=== PATIENT | male | born 1955 | race Caucasian/White ===

== ENCOUNTER 2018-02-02 09:02 | Emergency (ER) | payer MEDICARE ==
--- NOTE | 2018-02-02 09:44 | UC ---
Lower Extremity/Ankle HPI - HPI Summary HPI Summary: Patient is 62 year old , with past medical history significant for HTN, DM, Asthma mentally challenged who present today with left big toe pain x 2 days . He is here with his sister who is helping with evaluation. He lives with his brother who is also mentally challenged. He does report left big toe pain but visually his left foot is significantly swollen and he says its hurts as well. No trauma . He sees his podiatry and has next appointment in february. No swelling of the ankle . Denies any fever, chills, cough chest pain or shortness of breath . No diaphoresis. Denies any abdominal pain , nausea or vomiting , diarrhea or constipation. He has not tried over the counter medication without much relief. - History of Current Complaint Stated Complaint: INGROWN TOE NAIL Time Seen by Provider: 02/02/18 09:38 Hx Obtained From: Patient, Family/Kinesiologist - sister accompanying him Onset/Duration: Sudden Onset - Allergies/Home Medications Allergies/Adverse Reactions: Allergies Allergy/AdvReac Type Severity Reaction Status Date / Time No Known Allergies Allergy Verified 02/02/18 09:51 Home Medications: Home Medications Acetaminophen TAB* [Tylenol TAB*] 650 mg PO DAILY PRN 02/02/18 [History Confirmed 02/02/18] Atorvastatin* [Lipitor*] 20 mg PO QPM 02/02/18 [History Confirmed 02/02/18] Lisinopril [Prinivil] 20 mg PO QPM 02/02/18 [History Confirmed 02/02/18] PMH/Surg Hx/FS Hx/Imm Hx Previously Healthy: Yes Endocrine History: Diabetes Other Endocrine History: Negative Cardiovascular History: Hypertension Other Cardiovascular History: Negative Respiratory History: Asthma Other Respiratory History: Negative Other GI/ History: Negative Neurological History: Other - Mentally challenged. Other Neurological History: Negative Other Psychological History: Negative Other Cancer History: Negative Review of Systems Constitutional: Negative Skin: Negative Eyes: Negative ENT: Negative Respiratory: Negative Cardiovascular: Negative Gastrointestinal: Negative Genitourinary: Negative Motor: Negative Musculoskeletal: Arthralgia, Decreased ROM, Edema - left foot and big toe, Myalgia Neurological: Negative Psychological: Negative Is Patient Immunocompromised?: No All Other Systems Reviewed And Are Negative: Yes Physical Exam - Summary Physical Exam Summary: Physical Exam: Gait: antalgic Const: Appears well. pain distress present. Alert and oriented x 3. Head/Face: Atraumatic, normocephalic on inspection. Eyes: Conjunctivae clear. No discharge noted ENT: Hearing normal Respiratory: Respirations are unlabored. Lungs clear to auscultation bilaterally, no wheezing , rhonchi or rales noted . CVS: Regular rate and Rhythm, S1S2 normal , no murmurs identified. Extremities: Peripheral circulation is grossly normal. Pulses 2+ Abdomen : Soft non tender , nondistended , Bowel sounds present . No guarding , rebound tenderness or rigidity noted. Skin: No lesions or rash located on the upper extremities or on the lower extremities. Neuro: motor and sensory intact. Mood is normal. Affect is normal. Left foot: significant swelling on dorsum of foot . NO bruising noted. Moderate to severe tenderness of the mid foot and the metatarsals Left big toe: nail appears to have been trimmed and has not ingrown yet . It's swollen , tender to touch. No drainage or fluctuation or signs of pus noted. Triage Information Reviewed: Yes Vital Signs Reviewed: Yes Lower Extremity Course/Dx - Course Course Of Treatment: During the visit today, on further asking and upon evaluation ,it appears that whole foot is swollen and tender and hurts him to bear weight. Possibility of osteomyelitis cannot be ruled out . Given no h/o of trauma, fracture does not seem to be the cause but history is not reliable. Plan to send him to ER to get a CT scan to r/o osteomyelitis. We discussed the findings and further plan. Patient and his sister expressed understanding . - Differential Dx/Diagnosis Provider Diagnoses: Arthritis. Osteomyelitis Discharge - Sign-Out/Discharge Documenting (check all that apply): Patient Departure All imaging exams completed and their final reports reviewed: No Studies - Discharge Plan Condition: Stable Disposition: HOME-RECOMMEND TO ED Patient Education Materials: Osteomyelitis (ED), Swollen Joint (ED) Referrals: Mamadou Noriega MD [Primary Care Provider] - 2 Days Additional Instructions: We discussed the need to go to ER. It's my official recoomendation that he be seen in ER for advanced imaging . Her sister will drive him to ER. I have called report to Dr. Fountain at [facility]. Follow up with your primary care doctor in 2 days. Return to Urgent care / ER if symptoms get worse. - Billing Disposition and Condition Condition: STABLE Disposition: Home-Recommend to ED Images Feet (Multiple View): 1 - dorsum of foot
[2018-02-02 09:51] VITALS: BP 124/64
== END 2018-02-02 10:30 | disposition home health service (06) ==
LOC: UCCORT 09:02
DX: M19.072 Primary osteoarthritis, left ankle and foot (principal); M86.9 Osteomyelitis, unspecified; I10 Essential (primary) hypertension; E11.9 Type 2 diabetes mellitus without complications; J45.909 Unspecified asthma, uncomplicated; F79 Unspecified intellectual disabilities; Z79.899 Other long term (current) drug therapy
CPT/HCPCS: 99202; G0463

== ENCOUNTER 2018-02-10 08:05 | Emergency (ER) | payer MEDICARE, MEDICAID ==
--- OUTSIDE RECORDS SUMMARY | 2018-02-10 08:16 | XMS REPORT ---
:1955 External Reference #:[id number] Author Organization [facility] Address [address] [place] [address], [address] [place] [address] Phone [phone] Care Team Providers Name Role Phone Mamadou Noriega M.D. Care Team Information Regional Geodetic Advisor Unavailable Payers Type Date Identification Numbers Payment Provider Subscriber Medicare Primary Effective: Policy Number: Medicare Part B Delfin Sam 2018 [id number] PayID: [id number] [facility] [address] [place] [address] Medicare Primary Expires: 2018 Policy Number: Medicare Part B Delfin Sam [id number] PayID: [id number] [facility] [address] [place] [address] Medigap Part B Policy Number: [id number] [facility] Medicaid\\Medicare Delfin Sam Group Name: 2 1 [address] PayID: [id number] [place] [address] Workers Onset: 2009 Policy [place] [employer] [place] Compensation Number: Co CLAIM# [id number] PayID: [id number] [facility] [address] Problems Date Description Provider Status Onset: 09/25/2010 Benign essential hypertension Mamadou Noriega M.D. Active Onset: 09/25/2010 Hyperlipidemia Mamadou Noriega M.D. Active Onset: 09/25/2010 Anxiety state Mamadou Noriega M.D. Active Onset: 02/05/2018 Cellulitis of left lower limb SUZY Rdz Active Onset: 03/24/2015 Essential hypertension Mamadou Noriega M.D. Active Family History Date Family Member(s) Problem(s) Comments Father due to Liver Cancer () Mother due to Kidney Disease () Mother Coronary Artery Disease (CAD) First Brother due to Stroke () First Sister None Second Sister spina bifida Social History Type Date Description Comments Lives With brothers, nephew Occupation [employer] Cigarette Use Never Smoked Cigarettes ETOH Use Denies alcohol use Recreational Drug Use Denies Drug Use Smoking Patient has never smoked Daily Caffeine Does Not Consume Caffeine Personal Habits Text Exercise - 2 days a week Allergies, Adverse Reactions, Alerts Date Description Reaction Status Severity Comments 02/22/2009 NKDA active Medications Medication Date Status Form Strength Qnty SIG Indications Ordering Provider Ramipril 06/04 Active Capsules 5mg 90cap take one s capsule by Noriega, mouth every M.D. day Simvastatin 05/06 Active Tablets 20mg 30tab Take One Mamadou s Tablet By Noriega, Mouth Every M.D. Day Amoxicillin/Cla Active Tablets 875-125mg 1 by mouth Unknown vulanate /0000 twice a day Potassium Tobradex 02/02 Hx Suspension 0.3-0.1% 10ml 2 drops 372.39 both eyes [facility], - four times RN, LOAN REVIEW OFFICER 06/06 a day x days Emla 02/02 Hx Cream 2.5-2.5% 25gm [facility], LOAN REVIEW OFFICER 06/06 procedure Acetaminophen 05/06 Hx Tablets 325mg 100ta 2 tabs po q bs 4h-6h prn Yady Noriega M.D. 02/16 Bisacodyl 05/06 Hx Suppository 10mg prn Mamadou Laxative Yady Noriega M.D. 08/11 Lasix 05/06 Hx Tablets 20mg 30tab 1 po qd prn Traci Damon s Le edema Osika-Micky - mary, 08/11 R.N., /2013 F.N.P. Ramipril 05/06 Hx Capsules 10mg 30cap 1 po qd Mamadou s Yady Noriega M.D. 06/04 Soap Suds Enema 05/06 Hx OTC Mamadou /2012 Yady Noriega M.D. 08/11 Sorbitol 05/06 Hx OTC prn bowel regularity Yady Noriega M.D. 08/11 Paroxetine HCL 11/17 Hx Tablets 20mg 90tab Take One s Tablet By Hari, - Mouth Once M.D. 05/06 Azithromycin 03/10 Hx Tablets 250mg 6tabs 2 tabs po 466.0 Mamadou on day 1, Hari, - then 1 po M.D. 03/28 qday days 2-5 Aspir-81 11/[address] 81mg 1bott 1 po qd brianda Noriega - M.D. 05/06 Paxil Hx Tablets 20mg 90tab 1 po qd Mamadou / s Hari - M.D. 11/17 Diovan HCT Hx Tablets 160/12.5 90tab 1 po qd Unknown /0000 s - 05/25 Zocor Hx Tablets 20mg 90tab Take One Mamadou / s Tablet By Hari, - Mouth Every M.D. Altace Hx Capsules 10mg 180ca Take 2 Mamadou / ps Capsules By Hari, - Mouth Every M.D. Iron Hx Tablets 325(65Fe) OTC 1 po qd Unknown /0000 mg - 10/26 Flomax Hx Capsules 0.4mg 1 by mouth Unknown /0000 every day - 06/06 Medications Administered in Office Medication Date Status Form Strength Qnty SIG Indications Ordering Provider Admin Of Administered Injection Mamadou Pneumococcal 011 Hari, Vaccine Margot PPD Tuberculin Administered Injection Mamadou 5mL, ND 010 Hari, [id number] M.Sharon Immunizations CPT Code Status Date Vaccine Lot # [id number] Given 05/15/2017 Afluria, 0.5mL Flu Vaccine Q2037 Given 06/06/2016 Fluvirin 0.5 ML,[facility] 53606-377-06 [id number] Q2037 Given 03/24/2015 Fluvirin 0.5 ML,[facility] [id number] [id number] Given 10/07/2014 Prevnar 13, [facility] [id number]. 0.5 ML Q2037 Given 04/08/2014 Fluvirin 0.5 ML,[facility] 89138-887-13 [id number] Q2037 Given 04/02/2012 Fluvirin 0.5 ML,[facility] [id number] Q2036 Given 03/30/2011 Medicare Flu Vaccine Split Virus [id number] Given 03/30/2011 Pneumococcal Vaccine, [facility] [id number], 0.5 ML [id number] 30679 Given 03/30/2011 Flu Vaccine Split Virus(2010) [id number] 91780 Given 03/28/2010 Flu Vaccine Split Virus(2010) [id number] 78249 Given 02/22/2009 Flu Vaccine Split Virus(2010) [id number] Vital Signs Date Vital Result Comment 02/05/2018 Weight 174.00 lb Height 62 inches 5'2" BP Systolic 124 mmHg BP Diastolic 72 mmHg Heart Rate 74 /min Respiratory Rate 18 /min BMI (Body Mass Index) 31.8 kg/m2 08/06/2017 Weight 181.00 lb Height 62 inches 5'2" BP Systolic 118 mmHg BP Diastolic 70 mmHg Heart Rate 62 /min Respiratory Rate 18 /min BMI (Body Mass Index) 33.1 kg/m2 02/06/2017 Weight 185.00 lb Height 62 inches 5'2" BP Systolic 112 mmHg BP Diastolic 70 mmHg Body Temperature 60.0 F Respiratory Rate 18 /min BMI (Body Mass Index) 33.8 kg/m2 06/06/2016 Weight 183.00 lb Height 62 inches 5'2" BP Systolic 104 mmHg BP Diastolic 72 mmHg Heart Rate 84 /min BMI (Body Mass Index) 33.5 kg/m2 10/20/2015 Weight 179.00 lb Height 62 inches 5'2" BP Systolic 125 mmHg BP Diastolic 70 mmHg Heart Rate 68 /min both: 20/100 O2 % BldC Oximetry 98 % left and right: 20/100 BMI (Body Mass Index) 32.7 kg/m2 03/24/2015 Weight 179.00 lb Height 62 inches 5'2" BP Systolic 128 mmHg BP Diastolic 80 mmHg Heart Rate 70 /min BMI (Body Mass Index) 32.7 kg/m2 02/02/2015 Weight 177.50 lb Height 62 inches 5'2" BP Systolic 134 mmHg BP Diastolic 90 mmHg Body Temperature 98.0 F Heart Rate 70 /min O2 % BldC Oximetry 91 % Respiratory Rate 16 /min BMI (Body Mass Index) 32.5 kg/m2 01/28/2015 Weight 180.00 lb Height 62 inches 5'2" BP Systolic 136 mmHg BP Diastolic 80 mmHg Heart Rate 74 /min BMI (Body Mass Index) 32.9 kg/m2 12/22/2014 Weight 181.00 lb Height 62 inches 5'2" BP Systolic 122 mmHg BP Diastolic 68 mmHg Heart Rate 60 /min O2 % BldC Oximetry 98 % Respiratory Rate 16 /min BMI (Body Mass Index) 33.1 kg/m2 10/07/2014 Weight 177.00 lb Height 62 inches 5'2" BP Systolic 128 mmHg BP Diastolic 74 mmHg Heart Rate 70 /min BMI (Body Mass Index) 32.4 kg/m2 05/17/2014 Weight 174.00 lb Height 62 inches 5'2" BP Systolic 142 mmHg BP Diastolic 80 mmHg BP Systolic Recheck 124 mmHg BP Diastolic Recheck 70 mmHg Heart Rate 72 /min BMI (Body Mass Index) 31.8 kg/m2 04/08/2014 Weight 171.00 lb Height 62 inches 5'2" BP Systolic 122 mmHg BP Diastolic 72 mmHg Heart Rate 68 /min BMI (Body Mass Index) 31.3 kg/m2 02/16/2014 Weight 170.50 lb Height 62 inches 5'2" BP Systolic 110 mmHg BP Diastolic 70 mmHg Heart Rate 64 /min BMI (Body Mass Index) 31.2 kg/m2 10/07/2013 Weight 164.00 lb Height 62 inches 5'2" BP Systolic 132 mmHg BP Diastolic 80 mmHg Heart Rate 76 /min BMI (Body Mass Index) 30.0 kg/m2 09/02/2013 Weight 157.00 lb Height 62 inches 5'2" BP Systolic 128 mmHg BP Diastolic 72 mmHg Heart Rate 72 /min BMI (Body Mass Index) 28.7 kg/m2 08/11/2013 Weight 158.00 lb Height 62 inches 5'2" BP Systolic 112 mmHg BP Diastolic 68 mmHg Heart Rate 72 /min BMI (Body Mass Index) 28.9 kg/m2 06/04/2013 Weight 156.00 lb Height 62 inches 5'2" BP Systolic 110 mmHg BP Diastolic 62 mmHg Heart Rate 70 /min BMI (Body Mass Index) 28.5 kg/m2 05/13/2013 Weight 151.00 lb Height 62 inches 5'2" BP Systolic 120 mmHg BP Diastolic 78 mmHg Heart Rate 72 /min BMI (Body Mass Index) 27.6 kg/m2 03/31/2013 Weight 170.00 lb Height 62 inches 5'2" BP Systolic 124 mmHg BP Diastolic 76 mmHg Body Temperature 97.7 F Heart Rate 78 /min BMI (Body Mass Index) 31.1 kg/m2 10/01/2012 Weight 169.00 lb Height 62 inches 5'2" BP Systolic 120 mmHg BP Diastolic 60 mmHg Heart Rate 80 /min BMI (Body Mass Index) 30.9 kg/m2 04/02/2012 Weight 171.00 lb Height 62 inches 5'2" BP Systolic 120 mmHg BP Diastolic 62 mmHg Heart Rate 88 /min BMI (Body Mass Index) 31.3 kg/m2 10/02/2011 Weight 178.00 lb Height 62 inches 5'2" BP Systolic 128 mmHg BP Diastolic 70 mmHg Heart Rate 76 /min O2 % BldC Oximetry 98 % BMI (Body Mass Index) 32.6 kg/m2 03/30/2011 Weight 183.00 lb Height 62 inches 5'2" BP Systolic 108 mmHg BP Diastolic 70 mmHg Heart Rate 68 /min BMI (Body Mass Index) 33.5 kg/m2 09/26/2010 Weight 182.00 lb Height 62.00 inches 5'2" BP Systolic 124 mmHg BP Diastolic 72 mmHg Heart Rate 68 /min BMI (Body Mass Index) 33.3 kg/m2 03/28/2010 Weight 178.00 lb Height 62.00 inches 5'2" BP Systolic 120 mmHg BP Diastolic 70 mmHg Heart Rate 68 /min BMI (Body Mass Index) 32.6 kg/m2 03/10/2010 Weight 181.00 lb BP Systolic 110 mmHg BP Diastolic 60 mmHg Body Temperature 97.9 F Heart Rate 68 /min 12/15/2009 Weight 182.00 lb Height 62 inches 5'2" BP Systolic 120 mmHg BP Diastolic 70 mmHg Heart Rate 88 /min BMI (Body Mass Index) 33.3 kg/m2 11/11/2009 Weight 179.00 lb Height 62.5 inches 5'2.50" BP Systolic 132 mmHg BP Diastolic 74 mmHg Heart Rate 68 /min BMI (Body Mass Index) 32.2 kg/m2 05/25/2009 Weight 185.00 lb BP Systolic 118 mmHg BP Diastolic 72 mmHg Heart Rate 66 /min 02/22/2009 Weight 186.25 lb Height 63 inches 5'3" BP Systolic 104 mmHg BP Diastolic 66 mmHg Heart Rate 80 /min BMI (Body Mass Index) 33.0 kg/m2 Results Test Date Test Result H/L Range Note Lipid Panel 11/10/2014 Cholesterol 151 mg/dL 125-200 1 HDL Cholesterol 39 mg/dL Low > Or=40 1 Triglycerides 147 mg/dL <150 1 Non-HDL Cholesterol 112 mg/dL 1, 2 Cholesterol/HDL Ratio 3.9 < Or=5.0 1 LDL Chol,Calculated 83 mg/dL <130 1, 3 CMP 11/10/2014 Sodium 138 mmol/L 135-146 1 Potassium 4.7 mmol/L 3.5-5.3 1 Chloride 103 mmol/L 98-110 1 Carbon Dioxide 26 mmol/L 19-30 1 Calcium 9.4 mg/dL 8.6-10.3 1 Alkaline Phosphatase 105 U/L 40-115 1 Ast 25 U/L 10-35 1 Alt 23 U/L 9-46 1 Bilirubin,Total 0.5 mg/dL 0.2-1.2 1 Glucose 92 mg/dL 65-99 1, 4 Urea Nitrogen 27 mg/dL High 7-25 1 Creatinine 1.44 mg/dL High 0.70-1.33 1, 5 BUN/Creatinine Ratio 18.5 6-22 1 Protein,Total 7.1 g/dL 6.1-8.1 1 Albumin 4.0 g/dL 3.6-5.1 1 Globulin,Calculated 3.1 g/dL 1.9-3.7 1 A/G Ratio 1.3 1.0-2.5 1 Egfr Non-Afr. French 53 ML/MIN/1.73M2 Low > Or=60 1 Egfr 61 ML/MIN/1.73M2 > Or=60 1 Laboratory test finding 11/10/2014 TSH 1.76 mIU/L 0.40-4.50 1 PSA,Total 0.2 NG/ML 0.0-4.0 1, 6 CBC W/ Diff and PLT 11/10/2014 WBC 7.8 thous/L 3.8-10.8 1 RBC 4.03 mill/L Low 4.20-5.80 1 Hemoglobin 12.8 g/dL Low 13.2-17.1 1 Hematocrit 38.2 % Low 38.5-50.0 1 MCV 94.8 FL 80.0-100.0 1 MCH 31.6 pg 27.0-33.0 1 MCHC 33.4 g/dL 32.0-36.0 1 RDW 13.6 % 11.0-15.0 1 Platelet Count 225 thous/L 140-400 1 Platelet Sufficiency DNR Normal 1 MPV 9.2 FL 7.5-11.5 1 Neutrophils,Absolute 4940 cells/L 5028-0559 1 Bands,Absolute DNR cells/L 0-750 1 Metamyelocytes,Absolute DNR cells/L 0 1 Myelocytes,Absolute DNR cells/L 0 1 Promyelocytes,Absolute DNR cells/L 0 1 Lymphocytes,Absolute 1580 cells/L 850-3900 1 Monocytes,Absolute 830 cells/L 200-950 1 Eosinophils,Absolute 310 cells/L 15-500 1 Basophils,Absolute 90 cells/L 0-200 1 Blast Cells,Absolute DNR cells/L 0 1 Nucleated RBC,Absolute DNR cells/L 0 1 Total Neutrophils,% 64 % Not Established 1 Bands,% DNR % 0-10 1 Metamyelocytes,% DNR % 1 Myelocytes,% DNR % 1 Promyelocytes,% DNR % 1 Total Lymphocytes,% 20 % Not Established 1 Monocytes,% 11 % Not Established 1 Eosinophils,% 4 % Not Established 1 Basophils,% 1 % Not Established 1 Blasts,% DNR % 1 Nucleated RBC DNR /100WBC 0 1 RBC Morphology DNR 1 Anisocytosis DNR 1 Poikilocytosis DNR 1 Microcytosis DNR 1 Macrocytosis DNR 1 Polychromasia DNR 1 Hypochromasia DNR 1 Target Cells DNR 1 Basophilic Stippling DNR 1 Comment DNR 1 CBC 05/17/2014 WBC 7.6 10^3/uL 4.8-10.8 RBC 4.14 10^6/uL Low 4.2-6.1 HGB 12.9 g/dL 12.0-18.0 HCT 40.2 % 37-52 MCV 97.1 fL 80.0-99.9 MCH 31.2 pg 26.0-32.0 MCHC 32.1 g/dL 31.0-36.0 RDW 13.20 % 11.0-15.0 MPV 8.2 fL 7.4-10.4 Platelets 274 10^3/uL 130-400 Auto Diff 05/17/2014 Lymphocytes % 23.00 % 20.5-51.1 Monocytes % 11.10 % High 1.7-9.3 Granulocyte % 65.9 % 42.2-75.2 Lymphocytes # 1.7 10^3/uL 0.6-4.1 Monocytes # 0.8 10^3/uL 0.0-1.8 Granulocyte # 5.0 10^3/uL 2.0-7.8 CBC W/ Diff and PLT 10/22/2013 WBC 6.7 thous/L 3.8-10.8 1 RBC 4.19 mill/L Low 4.20-5.80 1 Hemoglobin 13.3 g/dL 13.2-17.1 1 Hematocrit 39.4 % 38.5-50.0 1 MCV 94.0 FL 80.0-100.0 1 MCH 31.7 pg 27.0-33.0 1 MCHC 33.7 g/dL 32.0-36.0 1 RDW 14.2 % 11.0-15.0 1 Platelet Count 207 thous/L 140-400 1 Platelet Sufficiency DNR Normal 1 Neutrophils,Absolute 3820 cells/L 5925-9292 1 Bands,Absolute DNR cells/L 0-750 1 Metamyelocytes,Absolute DNR cells/L 0 1 Myelocytes,Absolute DNR cells/L 0 1 Promyelocytes,Absolute DNR cells/L 0 1 Lymphocytes,Absolute 1690 cells/L 850-3900 1 Monocytes,Absolute 790 cells/L 200-950 1 Eosinophils,Absolute 360 cells/L 15-500 1 Basophils,Absolute 20 cells/L 0-200 1 Blast Cells,Absolute DNR cells/L 0 1 Nucleated RBC,Absolute DNR cells/L 0 1 Total Neutrophils,% 57 % Not Established 1 Bands,% DNR % 0-10 1 Metamyelocytes,% DNR % 1 Myelocytes,% DNR % 1 Promyelocytes,% DNR % 1 Total Lymphocytes,% 25 % Not Established 1 Monocytes,% 12 % Not Established 1 Eosinophils,% 5 % Not Established 1 Basophils,% 0 % Not Established 1 Blasts,% DNR % 1 Nucleated RBC DNR /100WBC 0 1 RBC Morphology DNR 1 Anisocytosis DNR 1 Poikilocytosis DNR 1 Microcytosis DNR 1 Macrocytosis DNR 1 Polychromasia DNR 1 Hypochromasia DNR 1 Target Cells DNR 1 Basophilic Stippling DNR 1 Comment DNR 1 CMP 10/22/2013 Sodium 139 mmol/L 135-146 1 Potassium 4.7 mmol/L 3.5-5.3 1 Chloride 105 mmol/L 98-110 1 Carbon Dioxide 23 mmol/L 19-30 1 Calcium 9.5 mg/dL 8.6-10.3 1 Alkaline Phosphatase 126 U/L High 40-115 1 Ast 40 U/L High 10-35 1 Alt 46 U/L 9-46 1 Bilirubin,Total 0.5 mg/dL 0.2-1.2 1 Glucose 85 mg/dL 65-99 1, 7 Urea Nitrogen 21 mg/dL 7-25 1 Creatinine 1.28 mg/dL 0.70-1.33 1, 8 BUN/Creatinine Ratio 16.5 6-22 1 Protein,Total 7.0 g/dL 6.1-8.1 1 Albumin 4.1 g/dL 3.6-5.1 1 Globulin,Calculated 2.9 g/dL 1.9-3.7 1 A/G Ratio 1.4 1.0-2.5 1 Egfr Non-Afr. French 61 ML/MIN/1.73M2 > Or=60 1 Egfr 71 ML/MIN/1.73M2 > Or=60 1 Lipid Panel 10/22/2013 Cholesterol 187 mg/dL 125-200 1 HDL Cholesterol 44 mg/dL > Or=40 1 Triglycerides 188 mg/dL High <150 1 Non-HDL Cholesterol 143 mg/dL 1, 9 Cholesterol/HDL Ratio 4.3 < Or=5.0 1 LDL Chol,Calculated 105 mg/dL <130 1, 10 Iron & Tibc,Serum 10/22/2013 Iron,Total 212 g/dL High 45-170 1 Tibc 337 g/dL 250-425 1 % Saturation 63 % High 20-50 1 Laboratory test finding 10/22/2013 Ferritin 33 NG/ML 20-380 1 Laboratory test finding 05/13/2013 eGFR (Male) 51 Low >59 11 Auto Diff 05/13/2013 Lymphocytes % 19.10 % Low 20.5-51.1 Monocytes % 8.20 % 1.7-9.3 Granulocyte % 72.7 % 42.2-75.2 Lymphocytes # 1.8 10^9/L 1.2-3.4 Monocytes # 0.8 10^9/L High 0.1-0.5 Granulocyte # 7.0 /mm^3 High 1.4-5.5 CBC 05/13/2013 WBC 9.6 10^3/uL 4.8-10.8 RBC 4.38 10^6/uL 4.2-6.1 HGB 12.0 g/dL 12.0-18.0 HCT 36.4 % Low 37-52 MCV 83.1 fL 80.0-99.0 MCH 27.3 pg 27.0-31.0 MCHC 32.9 g/dL Low 33.0-37.0 RDW 19.40 % High 11.0-15.0 MPV 8.7 fL 7.4-10.4 Platelets 255 10^3/uL 130-400 Comp. Metabolic 05/13/2013 Glucose 93.8 mg/dL 65-110 BUN 24.9 mg/dL High 7-21 Co2 21.8 mEq/L Low 22-30 Sodium 137 mEq/L 137-145 Potassium 5.0 mEq/L 3.6-5.2 Chloride 104 mEq/L 98-107 Calcium 10.1 mg/dL 9-10.5 Creatinine 1.50 mg/dL High 0.52-1.25 Total Protein 7.74 g/dL 6.3-8.2 Albumin 3.62 g/dL 3.3-4.50 Sgot (Ast) 17.0 IU/L 5-40 Alk Phosphatase 145.0 IU/L High 38-126 Total Bilirubin 0.69 mg/dL 0.2-1.3 SGPT (Alt) 12.0 IU/L 7-56 Anion Gap (Calc) 11.2 7-16 BUN/Crea Ratio 16.6 Ratio 7-25 Globulin (Calc) 4.12 g/dL High 2.3-3.5 A/G Ratio (Calc) 0.9 Ratio Low 1.1-2.2 Laboratory test finding 09/23/2012 PSA,Total 0.3 NG/ML 0.0-4.0 1, 12 Lipid Panel 09/23/2012 Cholesterol 134 mg/dL 125-200 1 HDL Cholesterol 38 mg/dL Low > Or=40 1 Triglycerides 122 mg/dL <150 1 Non-HDL Cholesterol 96 mg/dL 1, 13 Cholesterol/HDL Ratio 3.5 < Or=5.0 1 LDL Chol,Calculated 72 mg/dL <130 1, 14 CMP 09/23/2012 Sodium 139 mmol/L 135-146 1 Potassium 4.5 mmol/L 3.5-5.3 1 Chloride 106 mmol/L 98-110 1 Carbon Dioxide 24 mmol/L 19-30 1 Calcium 9.3 mg/dL 8.6-10.3 1 Alkaline Phosphatase 97 U/L 40-115 1 Ast 18 U/L 10-35 1 Alt 13 U/L 9-60 1 Bilirubin,Total 0.3 mg/dL 0.2-1.2 1 Glucose 89 mg/dL 65-99 1, 15 Urea Nitrogen 28 mg/dL High 7-25 1 Creatinine 1.17 mg/dL 0.70-1.33 1, 16 BUN/Creatinine Ratio 23.7 High 6-22 1 Protein,Total 6.7 g/dL 6.1-8.1 1 Albumin 3.8 g/dL 3.6-5.1 1 Globulin,Calculated 2.9 g/dL 1.9-3.7 1 A/G Ratio 1.3 1.0-2.5 1 Egfr Non-Afr. French 69 ML/MIN/1.73M2 > Or=60 1 Egfr 80 ML/MIN/1.73M2 > Or=60 1 BMP 10/12/2009 Sodiuim 137 mmol/L 136-145 Potassium 4.8 mmol/L 3.6-5.2 Chloride 101 mmol/L 100-108 Carbon Dioxide 27 mmol/L 21-32 Glucose 88 mg/dL 70-110 BUN 30 mg/dL High 7-21 Creatinine 1.2 mg/dL 0.6-1.3 Calcium 9.1 mg/dL 8.5-10.8 GFR >60 LP (Lipid) 10/12/2009 Cholesterol 179 mg/dL 120-200 Triglycerides 126 mg/dL 0-149 High Density Lipoprotein 49 mg/dL 40-60 Chol/HDL Ratio 3.7 Chol/HDL Reference Cholesterol/HDL <SEE NOTE> 17 LDL Direct 110 mg/dL High 0-99 Very Low Density Lipoprotein 25 Laboratory test finding 10/12/2009 SGPT 21 U/L 0-41 1 FASTING 2 Target for non-HDL cholesterol is 30 mg/dL higher than LDL cholesterol target. 3 LDL-CHOLESTEROL RISK CATEGORY* GOAL VERY HIGH (E.G. DIABETES + CVD) <70 MG/DL HIGH (DIABETICS; CHD RISK EQUIVALENTS) <100 MG/DL MODERATELY HIGH (MULTIPLE(2+) RISK FACTORS) <130 MG/DL 0 TO 1 RISK FACTORS <160 MG/DL * NCEP REPORT. CIRCULATION 2004; 110: 227-239 4 GLUCOSE REFERENCE RANGE BASED ON FASTING SPECIMEN. 5 The upper reference limit for Creatinine is approximately 13% higher for people identified as -French. 6 THIS TEST WAS PERFORMED USING THE SIEMENS CHEMILUMINESCENT METHOD. VALUES OBTAINED FROM DIFFERENT ASSAY METHODS CANNOT BE USED INTERCHANGEABLY. PSA LEVELS, REGARDLESS OF VALUE, SHOULD NOT BE INTERPRETED ABSOLUTE EVIDENCE OF THE PRESENCE OR ABSENCE OF DISEASE. 7 GLUCOSE REFERENCE RANGE BASED ON FASTING SPECIMEN. 8 The upper reference limit for Creatinine is approximately 13% higher for people identified as -French. 9 Target for non-HDL cholesterol is 30 mg/dL higher than LDL cholesterol target. 10 LDL-CHOLESTEROL RISK CATEGORY* GOAL VERY HIGH (E.G. DIABETES + CVD) <70 MG/DL HIGH (DIABETICS; CHD RISK EQUIVALENTS) <100 MG/DL MODERATELY HIGH (MULTIPLE(2+) RISK FACTORS) <130 MG/DL 0 TO 1 RISK FACTORS <160 MG/DL * NCEP REPORT. CIRCULATION 2004; 110: 227-239 11 Units expressed as mL/min/1.73m^2 12 THIS TEST WAS PERFORMED USING THE SIEMENS CHEMILUMINESCENT METHOD. VALUES OBTAINED FROM DIFFERENT ASSAY METHODS CANNOT BE USED INTERCHANGEABLY. PSA LEVELS, REGARDLESS OF VALUE, SHOULD NOT BE INTERPRETED ABSOLUTE EVIDENCE OF THE PRESENCE OR ABSENCE OF DISEASE. 13 Target for non-HDL cholesterol is 30 mg/dL higher than LDL cholesterol target. 14 LDL-CHOLESTEROL RISK CATEGORY* GOAL VERY HIGH (E.G. DIABETES + CVD) <70 MG/DL HIGH (DIABETICS; CHD RISK EQUIVALENTS) <100 MG/DL MODERATELY HIGH (MULTIPLE(2+) RISK FACTORS) <130 MG/DL 0 TO 1 RISK FACTORS <160 MG/DL * NCEP REPORT. CIRCULATION 2004; 110: 227-239 15 GLUCOSE REFERENCE RANGE BASED ON FASTING SPECIMEN. 16 The upper reference limit for Creatinine is approximately 13% higher for people identified as -French. 17 Cholesterol/HDL Ratio Interpretation Risk : 1/2 Avg Avg 2x Avg 3x Avg Male : 3.43 4.97 9.50 23.99 Female : 3.27 4.44 7.05 11.04 Procedures Date CPT Code Description Status Comment 01/28/2015 76835 EKG - In Office Completed 08/11/2013 83285 EKG - In Office Completed 08/03/2013 Colonoscopy Completed Document: 08/03/13 - Colonoscopy/Proctoscopy Dr Javed rocha Encounters Type Date Location Provider CPT E/M Dx Office Visit 08/06/2017 1:45p Main Office Mamadou Noriega M.D. 09338 I10 E78.4 G47.33 Office Visit 02/06/2017 2:15p Main Office Mamadou Noriega M.D. 66675 Z00.00 I10 E78.4 C64.1 R53.1 G47.33 Z68.33 Office Visit 06/06/2016 2:45p Main Office Mamadou Noriega M.D. 26406 I10 E78.4 C64.1 Office Visit 03/24/2015 10:30a Main Office Mamadou Noriega M.D. 95074 K43.2 I10 E78.4 Z01.818 Office Visit 02/02/2015 11:20a Main Office Nila Topete RN, [facility] 01729 372.39 Office Visit 01/28/2015 9:00a Main Office Mamadou Noriega M.D. 94381 553.21 401.1 272.4 V72.84 Office Visit 12/22/2014 9:30a Main Office Mamadou Noriega M.D. 41747 553.21 Office Visit 05/17/2014 2:30p Main Office Mamadou Noriega M.D. 99826 553.20 285.9 Office Visit 04/08/2014 3:45p Main Office Mamadou Noriega M.D. 39466 401.1 272.4 V04.81 Office Visit 02/16/2014 1:40p Main Office Nila Topete RN [facility] 11303 552.20 593.9 Office Visit 10/07/2013 3:30p Main Office Mamadou Noriega M.D. 46019 401.1 272.4 280.8 Office Visit 09/02/2013 10:30a Main Office Mamadou Noriega M.D. 99402 569.69 401.1 272.4 327.23 Office Visit 08/11/2013 10:15a Main Office Mamadou Noriega M.D. 63216 562.10 569.69 401.1 272.4 327.23 Office Visit 06/04/2013 10:45a Main Office Mamadou Noriega M.D. 34223 780.2 401.1 Office Visit 05/13/2013 9:00a Main Office Traci Goff, 51160 569.69 R.N., F.N.P. Office Visit 03/31/2013 11:30a Main Office Curt Valentin M.D. 29170 789.07 401.1 272.4 Office Visit 10/01/2012 3:15p Main Office Mamadou Noriega M.D. 28992 401.1 272.4 300.09 327.23 Office Visit 04/02/2012 3:30p Main Office Mamadou Noriega M.D. 31502 401.1 272.4 300.09 327.23 V04.81 Office Visit 10/02/2011 3:30p Main Office Mamadou Noriega M.D. 62980 272.4 401.1 300.09 V76.44 Office Visit 03/30/2011 4:00p Main Office Mamadou Noriega M.D. 60769 272.4 401.1 300.09 307.49 V76.44 V04.81 790.21 V03.82 Office Visit 09/26/2010 3:15p Main Office Mamadou Noriega M.D. 36831 401.1 272.4 300.09 454.8 Office Visit 03/28/2010 3:45p Main Office Mamadou Noriega M.D. 70372 401.1 272.4 V76.44 V04.81 V74.1 Office Visit 03/10/2010 4:45p Main Office Mamadou Noriega M.D. 56208 466.0 Office Visit 12/15/2009 2:45p Main Office Curt Valentin M.D. 56697 729.5 Office Visit 11/11/2009 4:00p Main Office Mamadou Noriega M.D. 88073 401.1 272.4 300.09 Office Visit 05/25/2009 2:45p Main Office Mamadou Noriega M.D. 86513 401.1 272.4 300.09 Office Visit 02/22/2009 2:30p Main Office Mamadou Noriega M.D. 76256 272.4 401.1 V04.81 Plan of Care Future Appointment(s):02/11/2018 3:30 pm - Mamadou Noriega M.D. at [facility] - [place], ANPL03.116 Cellulitis of left lower limbFollow up:02-11-[address] Noriega.
[2018-02-10 08:27] VITALS: BP 120/60
[2018-02-10] MEDS ORDERED: Ibuprofen ADULT LIQ* 600 MG/30 ML UDC PO ONE (08:43)
--- NOTE | 2018-02-10 08:48 | UC ---
Lower Extremity/Ankle HPI - HPI Summary HPI Summary: Patient was seen at this urgent care on the of last month for some redness of his left great toe and swelling of the foot. He was transferred to the emergency room to rule out osteomyelitis. He returns today accompanied by his sister. Sister reports that they went to the ER as directed. They had a plain x-ray that was normal. He was treated with amoxicillin twice daily, he is currently completing a 10 day course. He seemed to have slight improvement and even followed up with his primary care on the ; however, they returned today because the toe has become once again a little more red and swollen and the foot is a little more swollen. There has been no history of injury. No history of gout. No history of MRSA. They deny fever and chills and there is no streaking. Pt denies joint pain. Onset was about 11 days ago. - History of Current Complaint Stated Complaint: LEFT TOENAIL CONCERN Time Seen by Provider: 02/10/18 08:16 Hx Obtained From: Patient, Family/Form Tamper Operator Onset/Duration: Gradual Onset Aggravating Factor(s): Ambulation Able to Bear Weight: Yes - Risk Factors Gout Risk Factors: Age Over 40, Male, Hypertension, Hyperlipidemia DVT Risk Factors: Negative Septic Arthritis Risk Factor: Negative - Allergies/Home Medications Allergies/Adverse Reactions: Allergies Allergy/AdvReac Type Severity Reaction Status Date / Time No Known Allergies Allergy Verified 02/10/18 08:28 Home Medications: Home Medications Amoxicillin PO (*) [Amoxicillin 500 MG CAP*] 500 mg PO Q12H 02/10/18 [History Confirmed 02/10/18] PMH/Surg Hx/FS Hx/Imm Hx - Additional Past Medical History Additional PMH: cognitive limitation Endocrine History: Dyslipidemia Cardiovascular History: Hypertension - Surgical History Surgical History: Yes Surgery Procedure, Year, and Place: inguinal hernia, intestinal blockage - Family History Known Family History: Positive: Other - high cholesterol - Social History Occupation: Employed Part-time, Disabled Lives: With Family Alcohol Use: None Substance Use Type: None Smoking Status (MU): Never Smoked Tobacco Review of Systems Constitutional: Negative Skin: Rash - red L great toe with swelling that extends into dorsal foot. Eyes: Negative ENT: Negative Respiratory: Negative Cardiovascular: Negative Gastrointestinal: Negative Genitourinary: Negative Motor: Negative Neurovascular: Negative Musculoskeletal: Negative Neurological: Negative Psychological: Negative Is Patient Immunocompromised?: No All Other Systems Reviewed And Are Negative: Yes Physical Exam Triage Information Reviewed: Yes Appearance: Well-Appearing Eye Exam: Normal Eyes: Positive: Conjunctiva Clear ENT: Positive: Normal ENT inspection Neck: Positive: Supple, Nontender Respiratory: Positive: Lungs clear, Normal breath sounds Cardiovascular: Positive: RRR, No Murmur Abdomen Description: Positive: Nontender, No Organomegaly, Soft Bowel Sounds: Positive: Present Musculoskeletal: Positive: Other: - LLE: Hip, knee and ankle are without deformity or tenderness. Dorsum of the left foot is mildly swollen but nontender. Left great toe has mild to moderate swelling, erythema and slight warmth most intenses to lateral toenail. Passive range of motion of the toes on left foot is painless. Palpation soft tissue of the great toe elicits only slight discomfort. The foot has full sensorivascular motor function. Patient has a normal steady gait. Endocrine appreciate no streaking. Neurological: Positive: Alert Psychological: Positive: Age Appropriate Behavior Skin Exam: Normal Diagnostics - Radiology No standard instances Radiology Interpretation Completed By: Radiologist - IMPRESSION: Diffuse soft tissue swelling over the left foot. Question of prior injury to the distal phalanx of the great toe. Lower Extremity Course/Dx - Course Course Of Treatment: ER visit from [facility] obtained, negative foot xray and Tx with Augmentin 875mg BID. Pt is non toxic, no fever or streaking and xray unremarkable thus no ER transfer needed. Xray here shows STS but no osteomyelitis or acute fx. will d/c augmentin and tx with Clindamycin given failure on augmentin. will add indocin x 3 days and f/u pcp in 2 days for a recheck plus go to ER for any worsening. will also trim ingrown nail. PROCEDURE: time out done. foot soaked in warm water and betadine. no local given cellulitis. 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 also tip of nail flattened. bacitracin and gauze dressing to site. pt tolerated well. - Differential Dx/Diagnosis Provider Diagnoses: Cellulitis L great toe. Ingrown nail L great toe. Discharge - Sign-Out/Discharge Documenting (check all that apply): Patient Departure All imaging exams completed and their final reports reviewed: Yes - Discharge Plan Condition: Stable Disposition: HOME Prescriptions: Clindamycin Cap(NF) [Clindamycin Cap 300 mg Cap(NF)] 300 mg PO TID 10 Days #30 cap Indomethacin CAP* [Indocin CAP*] 25 mg PO TID #10 cap Patient Education Materials: Cellulitis (ED), Ingrown Nail (ED) Referrals: Mamadou Noriega MD [Primary Care Provider] - 2 Days Additional Instructions: STOP THE AUGMENTIN(ANTIBIOTIC). SOAK FOOT IN WARM SOAPY WATER 2-3 X'S DAILY. PODIATRY TO TRIM PATIENT NAILS UNLESS DIRECTED OTHERWISE BY HIS DOCTOR. CONSIDER A PROBIOTIC DAILY WHILE TAKING ANTIBIOTICS - Billing Disposition and Condition Condition: STABLE Disposition: Home
--- NOTE | 2018-02-10 09:39 | RAD ---
Indication: Left foot swelling. 3 views of the left foot demonstrate soft tissue swelling over the foot. No fracture is noted. No abnormal erosions are noted. Increased sclerosis of the distal phalanx of the great toe may be due to prior injury. IMPRESSION: Diffuse soft tissue swelling over the left foot. Question of prior injury to the distal phalanx of the great toe.
== END 2018-02-10 10:40 | disposition home or self-care (01) ==
LOC: UCCORT 08:05
DX: I10 Essential (primary) hypertension (principal); L03.032 Cellulitis of left toe; L60.0 Ingrowing nail
CPT/HCPCS: 99213; A9270-GY; G0463